=== PATIENT | female | born 1960 | race Caucasian/White ===

== ENCOUNTER 2021-12-15 14:32 | Outpatient (CLI) | payer BC ==
[2021-12-15 16:22] LABS: #Eosinphils 0.1 10x3/uL (0.0-0.5); #Monocytes 0.4 10x3/uL (0.0-1.1); #Neutrophils 3.1 10x3/uL (1.5-8.4); %Basophils 0.7 % (0.0-2.0); %Eosinophils 1.3 % (0.0-6.0); %Lymphocytes 40.7 % (18.0-47.0); %Monocytes 7.2 % (0.0-10.0); %Neutrophils 49.9 % (40.0-75.0); Hemoglobin 13.5 g/dL (12.0-15.5); Mean Corpuscular HGB CONC 33.9 g/dL (32.0-36.0); Mean Corpuscular Hemoglobin 30.2 pg (27.0-33.0); Mean Platelet Volume 12.1 fl (7.4-10.4); Platelet Count 204 10x3/uL (150-450); RBC Distribution Width 12.3 % (11.5-14.5); Red Blood Cell (RBC) Count 4.47 10x6/uL (3.90-5.03); White Blood Cell (WBC) Count 6.2 10x3/uL (3.5-10.5)
== END 2021-12-15 14:33 | disposition home or self-care (01) ==
LOC: LABBT 14:32
PROVIDERS: ATTEND Orthopaedic Surgery Hand Surgery
DX: Z01.812 Encounter for preprocedural laboratory examination (principal); Z20.822 Contact with and (suspected) exposure to COVID-19
CPT/HCPCS: 85025; 87811

== ENCOUNTER 2021-12-18 05:55 | Day surgery (SDC) | payer BC ==
[2021-12-16 10:31] VITALS: BMI 25.8
[2021-12-18] MEDS ORDERED: Fentanyl 100 MCG/2 ML VIAL ONE (06:23)
[2021-12-18] MEDS ORDERED: Lidocaine 1% (PF) 30 ML VIAL ONE (06:23)
[2021-12-18] MEDS ORDERED: Midazolam HCl 2 mg/2 ml Vial ONE (06:23)
[2021-12-18] MEDS ORDERED: Bacitracin Zinc Ointment 30 gm TUBE ONE (06:25)
[2021-12-18] MEDS ORDERED: Betamet Acet/Betamet Na Ph 30 MG/5 ML VIAL ONE (06:25)
[2021-12-18] MEDS ORDERED: Neomycin-Polymyxin 1 ML AMP ONE (06:25)
[2021-12-18] MEDS ORDERED: Bupivacaine PF 0.5% 30 ML VIAL ONE (06:25)
[2021-12-18] MEDS ORDERED: Promethazine HCl 25 MG/ML VIAL ONE (07:03)
[2021-12-18] MEDS ORDERED: fentaNYL Citrate/PF 100 MCG/2 ML SYRINGE ONE (07:03)
[2021-12-18] MEDS ORDERED: Vancomycin 1 GM/200 ML BAG ONE (07:04)
[2021-12-18] MEDS ORDERED: Bupivacaine HCl 0.5%/Epinephrine 1:200,000/PF 30 ml Vial ONE (07:17)
[2021-12-18] MEDS ORDERED: Dexamethasone 20 MG/5 ML VIAL ONE (07:17)
[2021-12-18] MEDS ORDERED: ePHEDrine 50 MG/ML VIAL ONE (07:17)
[2021-12-18] MEDS ORDERED: Lidocaine 1% PF 5 ML VIAL ONE (07:17)
[2021-12-18] MEDS ORDERED: Ondansetron PF 4 MG/2 ML Vial ONE (07:17)
[2021-12-18] MEDS ORDERED: PROPOFOL 200 MG/20 ML VIAL ONE (07:17)
[2021-12-18] MEDS ORDERED: Ketorolac Tromethamine 30 MG/ML VIAL ONE (07:17)
== END 2021-12-18 11:45 | disposition home or self-care (01) ==
LOC: SDC 05:55
PROVIDERS: ATTEND Orthopaedic Surgery Hand Surgery
PROC: 0LX50ZZ Transfer Right Lower Arm and Wrist Tendon, Open Approach (ICD-10-PCS; principal; 2021-12-18)
PROC: 0RG Upper Joints, Fusion (ICD-10-PCS; principal; 2021-12-18)
DX: M18.0 Bilateral primary osteoarthritis of first carpometacarpal joints (principal); M25.741 Osteophyte, right hand; M48.02 Spinal stenosis, cervical region; I10 Essential (primary) hypertension; E03.9 Hypothyroidism, unspecified; Z88.1 Allergy status to other antibiotic agents; Z91.048 Other nonmedicinal substance allergy status
CPT/HCPCS: 76000; 93005; 93010; C1894; J0702; J1100; J1885; J2001; J2250; J2405; J2550; J2704; J3010; J3370; J3490; S0020

== ENCOUNTER 2023-02-13 00:08 | Observation (INO) | payer BC ==
[2023-02-13 01:15] LABS: Troponin I Less than 0.010 ng/mL (< 0.028)
[2023-02-13] MEDS ORDERED: Ondansetron ODT 4 MG TAB PO PRN (02:13)
[2023-02-13] MEDS ORDERED: Acetaminophen 325 MG TAB PO PRN (02:13)
[2023-02-13] MEDS ORDERED: Senokot S 8.6-50 MG TAB PO PRN (02:13)
[2023-02-13] MEDS ORDERED: Calcium Carbonate 500 MG ChewTAB PO PRN (02:13)
[2023-02-13] MEDS ORDERED: LevoFLOXacin 750 mg/D5W 750 MG in Premix Bag 1 BAG IVPB SCH (03:00)
[2023-02-13 03:33] LABS: #Eosinphils 0.1 thou/uL (0.0-0.7); #Monocytes 0.4 thou/uL (0.11-0.59); #Neutrophils 2.8 thou/uL (1.40-6.50); %Basophils 0.4 % (0.0-1.0); %Eosinophils 2.6 % (0.0-10.0); %Lymphocytes 36.2 % (21.0-51.0); %Monocytes 8.3 % (0.0-10.0); %Neutrophils 52.3 % (42.0-75.0); Hematocrit 36.8 % (36.0-47.0); Hemoglobin 12.5 g/dL (12.0-16.0); Mean Corpuscular Volume 88.2 fl (78.0-98.0); Mean Platelet Volume 10.9 fL (7.4-10.4); Platelet Count 154 10x3/uL (130-400); Red Blood Cell (RBC) Count 4.17 mill/uL (4.20-5.40); White Blood Cell (WBC) Count 5.3 10x3/uL (4.8-10.8)
[2023-02-13 03:57] VITALS: BMI 24.4
[2023-02-13 04:10] LABS: Troponin I Less than 0.010 ng/mL (< 0.028)
[2023-02-13 04:11] LABS: Anion Gap 11 mmol/L (10-20); BUN (Urea Nitrogen) 11 mg/dL (9.8-20.1); Calc. Creatinine Clearance 80 mL/min (70-130); Carbon Dioxide 24 mmol/L (22-29); Chloride 107 mmol/L (98-107); Estimated GFR 80; Glucose 96 mg/dL (70-105); Potassium 3.4 mmol/L (3.5-5.1); Sodium 139 mmol/L (136-145)
[2023-02-13] MEDS: Levothyroxine Sodium 88 MCG TAB PO SCH (04:46)
[2023-02-13] MEDS ORDERED: Lisinopril 10 MG TAB PO SCH (09:00)
[2023-02-13] MEDS: Famotidine 20 MG TAB PO SCH ×2 (09:07→19:57)
[2023-02-13] MEDS: Oxybutynin ER 5 MG TAB PO SCH (09:07)
[2023-02-13] MEDS: Acetaminophen/Codeine 30-300mg Tablet PO PRN (09:14)
[2023-02-13] MEDS ORDERED: Aspirin 81 mg Enteric Coated Tablet PO SCH (10:15)
[2023-02-14] MEDS: Levothyroxine Sodium 88 MCG TAB PO SCH (05:05)
[2023-02-14] MEDS: Famotidine 20 MG TAB PO SCH (08:09)
[2023-02-14] MEDS: Oxybutynin ER 5 MG TAB PO SCH (08:09)
[2023-02-14] MEDS: Acetaminophen/Codeine 30-300mg Tablet PO PRN (08:12)
[2023-02-14 08:24] LABS: Cardiac Risk 3.1 (Less than 4.5)
[2023-02-14] MEDS ORDERED: Aspirin 81 mg Enteric Coated Tablet PO SCH (09:00)
[2023-02-14 15:50] VITALS: BP 99/64; TEMP 98.3
== END 2023-02-14 16:22 | disposition home or self-care (01) ==
LOC: ERS 00:08 → 2SW 01:55
PROVIDERS: ADMIT Student in an Organized Health Care Education/Training Program; ATTEND Internal Medicine
DX: R07.89 Other chest pain (principal); I10 Essential (primary) hypertension; E03.9 Hypothyroidism, unspecified; N32.81 Overactive bladder; N39.0 Urinary tract infection, site not specified; E87.6 Hypokalemia; Z90.710 Acquired absence of both cervix and uterus; Z98.890 Other specified postprocedural states; Z91.048 Other nonmedicinal substance allergy status; Z88.8 Allergy status to other drugs, medicaments and biological substances; Z79.890 Hormone replacement therapy; Z79.82 Long term (current) use of aspirin; Z79.899 Other long term (current) drug therapy
CPT/HCPCS: 36415; 78452; 80048; 80061; 84484; 85025; 93005; 93017; 96374; A9500; G0378; J1956